=== PATIENT | female | born 1975 | race Caucasian/White ===

== ENCOUNTER → 2017-05-16 | Outpatient (CLI) | payer OTHER ==
--- NOTE | ~2017-05-16 | MR122 ---
[facility] A Service of [facility] & [facility] RADIOLOGY TEXT RESULTS PATIENT: PRICE VIRGEN LOCATION: [facility] : 71 UNIT #: [id number] AGE: [address]: Festus Babcock II, MD SEX: F ORDER DR: [id number] [place] [id number] O MR#: [id number] Acc #: [id number] NAME: PRICE VIRGEN : 1975 SEX: F STUDY DATE/TIME: 05/16/2017 14:31 UNIT: [facility] ROOM: STUDY DESCRIPTION: MR MRA Head Wo Contrast Attending Physician: Festus Babcock II., M.D. Referring Physician: Festus Babcock II., M.D. Ordering Physician: Festus Babcock II., M.D. Primary Care Physician: Khalida Baez M.D. MRI CENTER REPORT This report is preliminary unless electronic signature is present. EXAM Head MRA, no contrast, 05/16/2017. PROCEDURE Axial ovvr-ex-[id number] head MRA with three-dimensional reformats. COMPARISON Prior head MRA dated 05/30/2015. CLINICAL HISTORY Known slight irregularity in the region of the anterior communicator origin, infundibulum versus aneurysm. Routine follow up. No new symptoms. COMPARISON Prior head MRA, most recent 05/30/2015. FINDINGS Both internal carotid and vertebral arteries are patent. The anterior communicator is patent and both posterior communicators are patent with a type right posterior cerebral origin. There is symmetric intracranial vascularity in the distal anterior, middle, and posterior cerebral runoffs. There is fullness at the left ACom A1/A2 junction. This may represent a small fenestration, or possibly a small infundibulum but in any event it is unchanged in appearance since the prior exams. Otherwise, no evidence of possible aneurysm is seen and the exam is otherwise unremarkable. IMPRESSION Stable appearance of the anterior communicator region with slight irregularity, possibly representing an infundibulum and possibly representing a fenestration but in any event unchanged since 05/30/2015 and unchanged since 12/12/2014. [facility] A Service of [facility] & [facility] RADIOLOGY TEXT RESULTS PAT[facility]: PR[facility]IRGEN [id number] [birth year] UNIT #: [id number] AGE: [address]: Festus Babcock II, MD SEX: F ORDER DR: Dictated by... Jose M Moreira M.D. THIS IS AN ELECTRONICALLY VERIFIED REPORT Jose M Moreira M.D. at 05/19/2017 10:56 AM ALEX/judson TD: 05/17/2017 21:42 JOB #: [id number] MRI CENTER REPORT Page 1 of 1
== END | disposition home or self-care (01) ==
LOC: SMRI 13:45
DX: R51 Headache (principal); Z86.79 Personal history of other diseases of the circulatory system
CPT/HCPCS: 70544